=== PATIENT | male | born 1950 ===

== ENCOUNTER 2018-04-27 17:39 | Emergency (ER) | payer SELFPAY ==
[~2018-04-27] VITALS: Ht 167.6 cm; Wt 72.6 kg
[2018-04-27 17:50] VITALS: Ht 167.6 cm; Wt 72.6 kg
[2018-04-27 18:51] LABS: BASOPHIL % 0.3 % (0-2); PLATELET COUNT 217 x10^3mcL (130-400); RED CELL DISTRIBUTION WIDTH 12.9 % (11.5-14.5)
[2018-04-27 19:10] LABS: CALCIUM 9.1 mg/dL (8.5-10.1); CARBON DIOXIDE 28.1 mmol/L (21-32); CHLORIDE SERUM 106 mmol/L (98-107); CREATININE SERUM 1.2 mg/dL (0.7-1.3); GFR1 > 60 mL/min; GLUCOSE SERUM 135 mg/dL (74-106); POTASSIUM SERUM 3.5 mmol/L (3.5-5.1); SODIUM SERUM 143 mmol/L (136-145)
[2018-04-27 19:15] LABS: ALBUMIN 4.2 g/dL (3.4-5.0); ALKALINE PHOSPHATASE 79 U/L (46-116); ALT/SGPT 26 U/L (16-63); AST/SGOT 19 U/L (15-37); BILIRUBIN TOTAL 0.9 mg/dL (0.20-1.00); TOTAL PROTEIN, SERUM 7.7 g/dL (6.4-8.2)
[2018-04-27 19:28] LABS: CK-MB 1.2 ng/mL (0-3.6)
[2018-04-27 20:15] VITALS: BP 195/103
== END 2018-04-27 20:15 | disposition home or self-care (01) ==
LOC: ED 17:39
PROVIDERS: Emergency Medicine
DX: I10 Essential (primary) hypertension (principal); E86.0 Dehydration
CPT/HCPCS: 83880; G0480; J7030; Q0092